=== PATIENT | male | born 1945 | race Caucasian/White ===

== ENCOUNTER 2016-07-24 14:39 | Inpatient (IN) | payer OTHER ==
[~2016-07-24] VITALS: Ht 177.8 cm; Wt 96.6 kg
--- NOTE | 2016-07-24 14:45 | NUR ---
Dr Logan at bedside examining patient
--- NOTE | 2016-07-24 14:45 | NUR ---
Placed in room 08 . Placed on quality assurance monitor final, blood pressure machine and pulse oximeter. To gown for exam. Side rails up.
[2016-07-24 14:48] VITALS: BP_SYST 145
--- NOTE | 2016-07-24 15:10 | NUR ---
Pt came into the ER in stable condition. Pt c/o +N/V x4 days. Pt c/o left lower extremity swelling and discomfort x4 days. Pt c/o generalized weakness. Pt has hx of HTN. Pt present w/ tenderness and swelling to lower left leg, from knee down. -sob -chest pain. No acute distress noted at this time, will continue to monitor
[2016-07-24 15:12] LABS: BASOPHILS # (AUTO) 0.1 K/uL (0.0-0.2); EOSINOPHILS % (AUTO) 0.1 % (0.0-4.0); HEMATOCRIT 37.3 % (36-54); HEMOGLOBIN 12.8 g/dL (14.0-18.0); LYMPHOCYTES # (AUTO) 0.7 K/uL (1.0-5.5); LYMPHOCYTES % (AUTO) 10.9 % (20.5-51.5); MEAN CORPUSCULAR HEMOGLOBIN 32 pg (27-31); MEAN CORPUSCULAR HGB CONC 34 % (32-36); MEAN CORPUSCULAR VOLUME 94 fL (79.0-98.0); MONOCYTES # (AUTO) 0.8 K/uL (0.0-1.0); NEUTROPHILS # (AUTO) 4.7 K/uL (1.8-7.7); PLATELET COUNT (AUTO) 112 K/uL (130-430); RED BLOOD CELL COUNT(AUTO) 3.98 MIL/uL (4.2-6.2); RED CELL DISTRIBUTION WIDTH 13.6 % (9.0-15.0); WHITE BLOOD COUNT (AUTO) 6.3 K/uL (4.8-10.8)
--- NOTE | 2016-07-24 15:20 | NUR ---
Pt taken to CT via wheelchair
[2016-07-24 15:25] LABS: INR 1.1 (0.80-1.20); PROTHROMBIN TIME 11.4 SECS (9.5-12.5)
[2016-07-24 15:32] LABS: ANION GAP 9 (5-15); CALCIUM 8.7 mg/dL (8.4-11.0); CHLORIDE 97 mmol/L (98-107); CREATININE 1.09 mg/dL (0.55-1.30); GLUCOSE 149 mg/dL (70-99); SODIUM SERUM 130 mmol/L (136-145); UREA NITROGEN, BLOOD 14 mg/dL (8-21)
[2016-07-24 15:50] LABS: ALANINE AMINOTRANSFERASE 75 U/L (12-78); ALBUMIN 3.6 g/dL (3.4-4.8); ASPARTATE AMINOTRANSFERASE 107 U/L (10-37); TOTAL BILIRUBIN 1.7 mg/dL (0.0-1.0); TOTAL PROTEIN, SERUM 6.9 g/dL (6.4-8.3)
[2016-07-24] MEDS ORDERED: ACETAMINOPHEN 500 MG TABLET PO ONE (16:00)
[2016-07-24] MEDS ORDERED: NACL 0.9% 1,000 ML IV ONE ×2 (16:00→20:45)
[2016-07-24] MEDS ORDERED: LISI2.5T48 PO (17:39)
--- NOTE | 2016-07-24 18:10 | NUR ---
ADMIT NOTE Received pt from ER to the floor with a diagnosis of fever of unknown origin. Admission process initiated. Patient oriented to room , safety precautions and call light-teach back done.
--- NOTE | 2016-07-24 18:15 | NUR ---
Patient will be admitted to care of Dr. Mistry. Admitted to med surg unit. Will go to room 121-c. Belongings list completed. Summary report printed. Report will be given at bedside to ALFA Berman.
[2016-07-24 18:20] VITALS: BP_SYST 91
--- NOTE | 2016-07-24 18:24 | NUR ---
Patient stable, ambulatory to the bed. Alert x3 at this time. Call light in reach. NEONATAL INTENSIVE CARE NURSE at bedside at this time.
[2016-07-24 19:30] VITALS: BP_SYST 91
--- NOTE | 2016-07-24 19:30 | NUR ---
Rounds Received patient lying in bed resting, denies of any pain, no acute distress noted. IV site checked intact and patent, saline. Instructed patient to call nurse when getting out of bed, call light within reach, bed alarm on.
[2016-07-24 20:00] VITALS: BP_SYST 98
--- NOTE | 2016-07-24 20:39 | NUR ---
Dr Fidelia Mistry made rounds seen and examined patient.
[2016-07-24] MEDS ORDERED: cefTRIAXone 1 GM IVPB PREMIX 50 ML IV ONE (21:41)
[2016-07-24] MEDS ORDERED: KCL 20 mEq in 100 mL (PREMIX) 100 ML IV ONE (22:14)
[2016-07-24] MEDS: cefTRIAXone 1 GM IVPB PREMIX 50 ML IV SCH (22:17)
--- NOTE | 2016-07-24 22:23 | NUR ---
Consult Called Reason For Consultation: Fever of unknown origin Person who was person notified: Sharon Was consult called:y Consulting Physician: Camille Pereira MD Regional Account Director Specialty: Infectious Disease Regional Account Director
[2016-07-24 23:01] LABS: BLOOD GAS PH 7.427 (7.350-7.450)
[2016-07-24 23:02] LABS: ABG TOTAL HEMOGLOBIN 12.4 G/dL (12.0-18.0); BLOOD GAS BASE EXCESS -1.8 mmol/L (-3.0-3.0); BLOOD GAS COHb% 0.2 % (0.5-1.5)
[2016-07-24 23:03] LABS: BLOOD GAS HHB 11.5 % (0.0-6.0)
--- NOTE | 2016-07-24 23:30 | NUR ---
Notes Assisted patient to used BSC and back to bed. Urine sample collected and sent to lab.
--- NOTE | 2016-07-24 23:41 | NUR ---
Paged Dr Mistry Paged Dr Mistry x2, regarding ABG critical result, awaiting for MD to call back.
--- NOTE | 2016-07-24 23:47 | NUR ---
Dr Fidelia Mistry called back informed regarding ABG critical result. Per Dr Mistry he will put in the order for O2 nasal cannula and patient to tele monitor. Charge nurse made aware.
[2016-07-24 23:59] LABS: BILIRUBIN,URINE NEGATIVE (NEGATIVE); BLOOD, URINE NEGATIVE (NEGATIVE); CLARITY/URINE CLEAR (CLEAR); COLOR,URINE YELLOW (YELLOW); GLUCOSE,URINE NEGATIVE (NEGATIVE); KETONES,URINE 2+ (NEGATIVE); LEUKOCYTE ESTERASE ,URINE NEGATIVE (NEGATIVE); NITRITE, URINE NEGATIVE (NEGATIVE); PROTEIN URINE TRACE (NEGATIVE)
[2016-07-25] VITALS (8 sets, daily range): BP systolic 115–150
--- NOTE | 2016-07-25 00:17 | NUR ---
Consult Called Reason For Consultation:SOB Person who was notified: Radha Was consult called:Y Consulting Physician:Rose Torres MD Public Relations Analyst Specialty: PULMONARY Public Relations Analyst
[2016-07-25 00:55] LABS: BACTERIA,URINE FEW /HPF (None Seen); MUCUS,URINE 2+ /LPF (None Seen); RBC,URINE 0-3 /HPF (0-3)
[2016-07-25] MEDS: ACETAMINOPHEN 325 MG TABLET PO PRN ×3 (00:56→20:19)
--- NOTE | 2016-07-25 01:02 | NUR ---
Paged Dr Mistry Paged Dr Mistry regarding urine result. awaiting for MD to call back
--- NOTE | 2016-07-25 01:03 | NUR ---
C/O body ache Patient c/o body ache, chills and shaking, no fever 97.7 temp oral. Tylenol given will monitor for effectiveness, warm blanket provided.
--- NOTE | 2016-07-25 01:12 | NUR ---
IRENE REY For orders spoke with Rojas
--- NOTE | 2016-07-25 01:19 | NUR ---
Dr Dove Informed Dr Mistry regarding urine result, no order received.
--- NOTE | 2016-07-25 01:20 | NUR ---
Notes Patient resting quietly at this time. Tylenol given earlier with effective result noted.
--- NOTE | 2016-07-25 01:56 | NUR ---
Transfer of care Transfer of care to [facility] RN, report given.
[2016-07-25] MEDS: POTASSIUM CHLORIDE 10 MEQ in NACL 0.9% 1,000 ML IV SCH ×2 (02:00→06:27)
--- NOTE | 2016-07-25 02:00 | NUR ---
RN ROUNDS PT. RESTING QUIETLY, VITAL SIGNS STABLE, NO DISTRESS NOTED, DENIES PAIN, CALL LIGHT WITHIN REACH, WILL CONTINUE TO MONITOR.
--- NOTE | 2016-07-25 04:00 | NUR ---
RN ROUNDS PT. RESTING QUIETLY, VITAL SIGNS STABLE, NO DISTRESS NOTED, DENIES PAIN, CALL LIGHT WITHIN REACH, WILL CONTINUE TO MONITOR.
--- NOTE | 2016-07-25 06:24 | NUR ---
CLOSING NOTES PT. RESTING QUIETLY, VITAL SIGNS STABLE, NO DISTRESS NOTED, DENIES PAIN, CALL LIGHT WITHIN REACH, KEPT COMFORTABLE.
[2016-07-25 06:47] LABS: BASOPHILS % (AUTO) 0.2 % (0.0-2.0); EOSINOPHILS % (AUTO) 0.2 % (0.0-4.0); HEMATOCRIT 35.3 % (36-54); LYMPHOCYTES # (AUTO) 0.8 K/uL (1.0-5.5); LYMPHOCYTES % (AUTO) 14.7 % (20.5-51.5); MEAN CORPUSCULAR HEMOGLOBIN 32 pg (27-31); MEAN CORPUSCULAR HGB CONC 34 % (32-36); MEAN CORPUSCULAR VOLUME 94 fL (79.0-98.0); MONOCYTES # (AUTO) 0.4 K/uL (0.0-1.0); MONOCYTES % (AUTO) 8.3 % (1.7-9.3); NEUTROPHILS # (AUTO) 4.1 K/uL (1.8-7.7); NEUTROPHILS % (AUTO) 76.6 % (40.0-70.0); PLATELET COUNT (AUTO) 116 K/uL (130-430); RED BLOOD CELL COUNT(AUTO) 3.73 MIL/uL (4.2-6.2); RED CELL DISTRIBUTION WIDTH 13.4 % (9.0-15.0); WHITE BLOOD COUNT (AUTO) 5.3 K/uL (4.8-10.8)
[2016-07-25 06:56] LABS: ALANINE AMINOTRANSFERASE 91 U/L (12-78); ALBUMIN 2.9 g/dL (3.4-4.8); ANION GAP 9 (5-15); ASPARTATE AMINOTRANSFERASE 130 U/L (10-37); CALCIUM 8.1 mg/dL (8.4-11.0); CHLORIDE 102 mmol/L (98-107); CREATININE 0.96 mg/dL (0.55-1.30); GLUCOSE 123 mg/dL (70-99); POTASSIUM 3.7 mmol/L (3.5-5.1); SODIUM SERUM 134 mmol/L (136-145); TOTAL BILIRUBIN 1.2 mg/dL (0.0-1.0); TOTAL PROTEIN, SERUM 5.9 g/dL (6.4-8.3); UREA NITROGEN, BLOOD 15 mg/dL (8-21)
--- NOTE | 2016-07-25 07:36 | NUR ---
OPENING NOTE PATIENT IS AWAKE, ALERT. AMBULATED TO RESTROOM W ASSIST. REPORTS SEVERE SOB WITH AMBULATION, FEELS WARM, NO CHILLS. PT REPORTS NAUSEA BUT STATES HE IS TOLERATING HIS DIET. DENIES ANY PAIN, NO SIGNS OF DISTRESS. LUNGS CLEAR TO BASES WITH SOME DIMINISHED SOUNDS. NO EDEMA NOTED. PT STATES HE HAS BEEN FEELING WEAK AND TIRED FOR A WEEK, STATES HE WAS TIRED OF SITTING AROUND "DOING NOTHING" AND DECIDED IT WAS TIME TO GET A CHECK-UP.
--- NOTE | 2016-07-25 08:45 | NUR ---
DR REY IN TO SEE PATIENT. NEW ORDERS FOR GI CONSULT GIVEN.
--- NOTE | 2016-07-25 08:49 | NUR ---
GI Consult: for Dr. Goodwin, regarding abnormal LFT, ordered by Dr. Mistry, spoke with Yamilet.
--- NOTE | 2016-07-25 08:53 | NUR ---
Nutrition Update Vinod Scale 18 noted. Pt admitted for fever of unknown origin. Diet: 2 gm Na BMI: 30.6 kg/m2 RD to follow per nutrition care standards.
--- NOTE | 2016-07-25 09:36 | NUR ---
PATIENT RESTING, SLEEPING. ATE MOST OF BREAKFAST. LUNCH TO BE HELD PENDING ABDOMINAL ULTRASOUND
[2016-07-25] MEDS ORDERED: IPRATROPIUM BROM 0.5 MG/2.5 ML VIAL.NEB (ATROVENT) INH PRN (09:45)
[2016-07-25] MEDS ORDERED: NACL 0.9% 1,000 ML IV SCH (09:45)
[2016-07-25] MEDS ORDERED: ALBUTEROL SULFATE 0.083% 2.5 MG/3 ML VIAL.NEB INH PRN (09:45)
[2016-07-25] MEDS ORDERED: IOHEXOL 350 mgI/mL, 150 ML INFUS..BTL IV ONE (11:00)
--- NOTE | 2016-07-25 11:21 | NUR ---
DR ZHONG IN TO SEE PATIENT. PATIENT TAKEN VIA W/C TO CT SCAN
--- NOTE | 2016-07-25 12:18 | NUR ---
Discharge Planning Received call from CODY Lynn @ [facility] [phone], stating that patient is OON and they would like to transfer to [facility] which is his contracted hospital. Leah asked that a facesheet as well as review be faxed to [facility] . I met with patient at bedside to update him. He is frustrated because his insurance will be changing to a different medical group as of July 30, 2016. I explained that although the other medical group will be assigned in just a few days for this admission we have to go with [facility] as the responsible alliance party. He was frustrated but understands. Information faxed to [facility] transfer center. Addendum: 07/25/16 at 1340 by Elizabeth Morataya DP Ordered Radiology Cd. Placed transportation packet in nurses station. Addendum: 07/25/16 at 1617 by Maye Reese RN [facility] has accepted patient pending bed assignment. [facility] has been placed on will-call [phone]. Heel Seat Sander CM @ [facility] is Ricky # [phone].
--- NOTE | 2016-07-25 12:58 | NUR ---
PT TEMP FOR 1200 V/S IS 101.0 RN CAROLINE IS NOTIFIED AND AWARE.
[2016-07-25] MEDS ORDERED: ALBUTEROL SULFATE 0.083% 2.5 MG/3 ML VIAL.NEB INH SCH (13:00)
[2016-07-25] MEDS ORDERED: IPRATROPIUM BROM 0.5 MG/2.5 ML VIAL.NEB (ATROVENT) INH SCH (13:00)
--- NOTE | 2016-07-25 18:18 | NUR ---
dr roberst paged re monica. pt admitted to [facility] under med-surg, needs to be dc'd on tele and able to transfer BLS.
--- NOTE | 2016-07-25 18:46 | NUR ---
per dr roberts ok to fl tele and transport via bls. will endorse to hourly shift RN. no bed assignment at [facility] at this time
--- NOTE | 2016-07-25 19:35 | NUR ---
INITIAL NOTE Patient resting on the bed comfortable. Denied of pain. Respiration even and unlabored. No acute distress. On O2 2L/min via NC. AO x 4. Skin warm and dry to touch. IV intact to right wrist, no redness, no swelling, no drainage. On NS at 70ml/hr, infusing well. Discussed the safety issue, use call light when need help, plan of care, and will transfer to [facility] when the bed is available, verbally understanding. Safety measure maintained. Call light within reached. Bed in low position, side rails up, bed alarm on. Will continue to monitor.
--- NOTE | 2016-07-25 19:45 | NUR ---
RECEIVED THE CALLED FROM [facility] Received the called Dr. Pulido from [facility], the reason for transfer, medication list, and lab result reported. requested the CD for imaging when transfer. stated that still no bed available, will call when arrange the bed.
[2016-07-25] MEDS: cefTRIAXone 1 GM IVPB PREMIX 50 ML IV SCH (20:19)
--- NOTE | 2016-07-25 20:19 | NUR ---
TYLENOL GIVEN Tylenol 650mg PO given for zywc=020.5 as ordered. No acute distress. Patient refused ice pack only agreed to put the wet washcloth on the forehead. Call light within reached. Bed in low position, side rails up, bed alarm on. will continue to monitor.
--- NOTE | 2016-07-25 20:19 | NUR ---
TYLENOL GIVEN Tylenol 64
[2016-07-25] MEDS ORDERED: DOXYCYCLINE HYCLATE 100 MG CAPSULE PO SCH (21:00)
--- NOTE | 2016-07-25 21:19 | NUR ---
RECHECKED TEMP Pkgw=791.7, no acute distress. Wet washcloth remained on the forehead. Call light within reached. Safety measure maintained. Continue to monitor.
--- NOTE | 2016-07-25 21:30 | NUR ---
RECEIVED THE CALL FROM [facility] Received the call from [facility] eTagan Farris (transportation coordinator) stated that the patient will go to [place] [id number] room 26. The insurance will call when arrange the ambulance.
--- NOTE | 2016-07-25 21:52 | NUR ---
RECEIVED THE CALL FROM BERTHA WILL TRANSFER PATIENT VIA [facility] WILL BE IN 45 MINUTES
--- NOTE | 2016-07-25 22:07 | NUR ---
GAVE REPORT TO GURU CARBAJAL Gave report to Ana Cristina; the nurse who will take care the patient . The patient will go to room 25 instead of room 26.
--- NOTE | 2016-07-25 22:15 | NUR ---
AMBULATED PATIENT TO BATHROOM
--- NOTE | 2016-07-25 22:35 | NUR ---
PT TRANSFERRED Report given to Ana Cristina at 2207. Transfer packet with Transfer Orders and Medication Reconciliation form given to EMT with report. Exitcare provided. [facility] ID band removed, replaced with ID band with pt's name and . IV intact to right wrist, no redness, no swelling. All belongings sent with patient. Patient left floor via gurney escorted by EMT in no distress.
--- NOTE | 2016-07-25 23:30 | NUR ---
RECEIVED THE CALL FROM [facility] Received the call from [facility] Teagan Farris (regional transfer liaison) stated that the patient will go to [place] [id number] room 26. The insurance will call when arrange the ambulance. Addendum: 07/26/16 at 0021 by Kiran Albright RN WRONG TIME SHOULD BE 2130
== END 2016-07-25 22:42 | disposition short-term general hospital (02) | DRG 871 ==
LOC: SED 14:39 → SMU 17:50 → STU 23:54 → SMU 07-25 18:56
PROVIDERS: ADMIT Internal Medicine; ATTEND Internal Medicine
PROC: 5A09357 Assistance with Respiratory Ventilation, Less than 24 Consecutive Hours, Continuous Positive Airway Pressure (ICD-10-PCS; principal; 2016-07-25)
DX: A41.9 Sepsis, unspecified organism (principal); J96.91 Respiratory failure, unspecified with hypoxia; J12.9 Viral pneumonia, unspecified; E44.0 Moderate protein-calorie malnutrition; E87.1 Hypo-osmolality and hyponatremia; N39.0 Urinary tract infection, site not specified; D64.9 Anemia, unspecified; D69.6 Thrombocytopenia, unspecified; F17.210 Nicotine dependence, cigarettes, uncomplicated; I10 Essential (primary) hypertension; K57.90 Diverticulosis of intestine, part unspecified, without perforation or abscess without bleeding; Z68.30 Body mass index [BMI] 30.0-30.9, adult
CPT/HCPCS: 36415; 36600; 70450-TC; 71010; 71275; 76700-TC; 80053; 81000-TC; 82803-TC; 83605; 83880; 84443-TC; 84484; 85025; 85610-TC; 85651-TC; 85730-TC; 87040-TC; 87086; 87449; 93005; 93971; 94640; 96360; 99285; J0696; J3480; J7030; Q9967